=== PATIENT | female | born 1940 | race Caucasian/White ===

== ENCOUNTER → 2018-12-01 12:25 | Outpatient (CLI) | payer MEDICARE, OTHER, SELFPAY ==
--- NOTE | 2018-12-01 | DI.US.S_ITS ---
PROCEDURE: US THYROID INDICATIONS: NODULAR THYROID DISEASE TECHNIQUE: Real-time scanning was performed of the thyroid gland, with image documentation. COMPARISON: [facility], [place], BIOPSY LOCALIZATION/ASPIRATION, 11/11/2012, 13:10. FINDINGS: Right: Thyroid lobe measures 5.6 x 2.5 x 2.3 cm, and is homogeneous in echotexture. Left: Thyroid lobe measures 7.1 x 4.6 x 3.7 cm, and is homogenous in echotexture. Isthmus: Approximately 1.1 cm thick. Nodule number: 1 Location: Superior right lobe Size: 0.9 x 0.6 x 0.9 cm. Composition: Solid Echogenicity: Hypoechoic Shape: Wider than tall Margins: Ill-defined. Echogenic foci: None Total points: 4 ACR TI-RADS category: 4: moderately suspicious. Nodule number: 2 Location: Inferior right lobe Size: 1.8 x 1.9 x 2.6 cm. Composition: Cystic and solid. Internal vascularity demonstrated. Echogenicity: Isoechoic solid components. Shape: Wider than tall. Margins: Smooth. Echogenic foci: None. Total points: 2 ACR TI-RADS category: 2: Not suspicious. Nodule number: 3 Location: Right isthmus Size: 1.4 x 1.2 x 1.9 cm. Composition: Predominantly solid, with cystic components. There is internal vascularity on color Doppler interrogation. Echogenicity: Isoechoic solid components. Shape: Wider than tall. Margins: Smooth. Echogenic foci: There are a few small internal echogenic foci. Total points: 5 ACR TI-RADS category: 4: moderately suspicious. Nodule number: 4 Location: Mid to inferior left lobe. Size: 3.6 x 2.8 x 5.8 cm. slightly increased in size from 3.3 x 2.8 x 4.8 cm on the 11/11/12 study. Composition: Solid. There is internal vascularity on Doppler interrogation. Echogenicity: Hypoechoic. Shape: Wider than tall. Margins: Smooth. Echogenic foci: There are internal small foci of calcifications. Total points: 7 ACR TI-RADS category: 5: Highly suspicious. This was previously biopsied with benign findings. IMPRESSION: 1. Multiple bilateral thyroid nodules redemonstrated including the previously biopsied left lobe nodule. 2. Ultrasound guided fine needle aspiration may be performed of the right isthmus nodule as per recommendations below if clinically indicated. 3. Recommend followup of remaining nodules in 12 months to demonstrate stability. ACR TI-RADS definitions and recommendations: TI-RADS 1 (benign): 0 points. FNA not needed. TI-RADS 2 (not suspicious): 2 points. FNA not needed. TI-RADS 3 (mildly suspicious): 3 points. * FNA if 2.5 cm or larger, follow up if 1.5 cm or larger (at 1, 3, and 5 years). TI-RADS 4 (moderately suspicious): 4-6 points. * FNA if 1.5 cm or larger, follow up if 1 cm or larger (at 1, 2, 3, and 5 years). TI-RADS 5 (highly suspicious): 7 points or more. * FNA if 1 cm or larger, follow up if 0.5 cm or larger (every year for 5 years). Dictated by: Ketan Muhammad M.D. on 12/01/2018 at 17:25 Approved by: Ketan Muhammad M.D. on 12/01/2018 at 17:36
== END ==
PROVIDERS: PCP Family Medicine; Visit Provider Family Medicine
DX: E04.2 Nontoxic multinodular goiter (principal)
CPT/HCPCS: 76536

== ENCOUNTER → 2021-10-07 11:59 | Outpatient (CLI) | payer MEDICARE, OTHER, SELFPAY ==
--- NOTE | 2021-10-07 12:00 | DI.US.S_ITS ---
PROCEDURE: US PERIPH VENOUS LOW EXTREM LT INDICATIONS: left groin pain 4 months sp hip replacement surgery TECHNIQUE: Real-time imaging, as well as color and pulse Doppler interrogation, were performed of the lower extremity deep veins from the inguinal ligament to the popliteal fossa. COMPARISON: None. FINDINGS: The common femoral, femoral and popliteal veins are normally compressible, and free of intraluminal thrombus. Color and pulse Doppler demonstrate normal phasic intraluminal flow. There is normal augmentation response to distal compression maneuver. Vasquez's cyst is noted measuring 3.9 x 1.0 x 3.1 cm. IMPRESSION: No deep venous thrombosis. Vasquez's cyst is present. Dictated by: Smitha Velez M.D. on 10/07/2021 at 15:36 Approved by: Smitha Velez M.D. on 10/07/2021 at 15:37
== END ==
PROVIDERS: PCP Physician Assistant Medical; Referring Provider Physician Assistant Medical; Visit Provider Physician Assistant Medical
DX: M25.552 Pain in left hip (principal); R10.32 Left lower quadrant pain; M71.22 Synovial cyst of popliteal space [Baker], left knee; Z96.642 Presence of left artificial hip joint
CPT/HCPCS: 93971